=== PATIENT | female | born 1955 | race Caucasian/White ===

== ENCOUNTER 2016-06-14 14:55 | Outpatient (RCR) | payer BC ==
[2016-04-17 21:39] VITALS: BP 123/70
[~2016-06-14 14:55] MED LIST: NORCO 325 MG-51 TAB PO; ZOFRAN ODT4 MG PO
== END 2016-07-26 10:26 | disposition home or self-care (01) ==
LOC: PT 14:55
DX: M75.01 Adhesive capsulitis of right shoulder (principal)

== ENCOUNTER 2016-08-02 09:21 | Outpatient (RCR) | payer BC ==
[2016-04-17 21:39] VITALS: BP 123/70
== END 2016-10-31 | disposition home or self-care (01) ==
LOC: PT
DX: M75.22 Bicipital tendinitis, left shoulder (principal)

== ENCOUNTER 2016-12-22 16:30 | Outpatient (RCR) | payer BC ==
[2016-04-17 21:39] VITALS: BP 123/70
== END 2016-12-22 17:00 | disposition home or self-care (01) ==
LOC: PT 16:30
DX: M75.21 Bicipital tendinitis, right shoulder (principal)

== ENCOUNTER → 2017-02-01 | Outpatient (CLI) | payer BC ==
[2016-04-17 21:39] VITALS: BP 123/70
== END ==
LOC: LAB 15:03
DX: E03.4 Atrophy of thyroid (acquired) (principal); J98.4 Other disorders of lung; I49.9 Cardiac arrhythmia, unspecified

== ENCOUNTER → 2017-07-12 | Outpatient (CLI) | payer BC ==
[2016-04-17 21:39] VITALS: BP 123/70
== END ==
LOC: RAD 15:19
DX: M77.32 Calcaneal spur, left foot (principal)

== ENCOUNTER 2017-08-04 13:36 | Emergency (ER) | payer BC ==
[~2017-08-04] VITALS: Wt 79.7 kg
[2017-08-04] MEDS ORDERED: ASPIRIN E.C. 8181 MG PO (13:47)
[2017-08-04] MEDS ORDERED: PROPRANOLOL HCL20 M2 PO (13:47)
[2017-08-04] MEDS ORDERED: LEVOTHYROXINE0.05 MG PO (13:47)
[2017-08-04] MEDS ORDERED: VITAMIN E200 UNI1 (13:48)
[2017-08-04 14:30] LABS: EOS # 0.2 (0.04-0.40); EOS % 4.2 % (1.0-5.0); HEMATOCRIT 37.8 % (37.0-47.0); HEMOGLOBIN 12.4 g/dL (12.5-16.0); LYMPH# 1.5 (1.50-4.00); MEAN CELL VOLUME 92 fl (78-100); MEAN CORPUSCULAR HEMOGLOBIN 30 pg (27-31); MEAN CORPUSCULAR HGB CONC 33 g/dL (33-37); MEAN PLATELET VOLUME 9.4 fl (7.4-10.4); MONO # 0.3 (0.20-0.80); NEU # 2.7 (1.40-6.50); PLATELET COUNT 276 K/mm3 (130-400); RED CELL DISTRIBUTION WIDTH 12.6 % (11.5-14.5); WHITE BLOOD COUNT 4.8 K/mm3 (4.8-10.8)
[2017-08-04 14:39] LABS: BUN/CREATININE RATIO 27.2 (6.0-26.0); CALCIUM 9.2 mg/dL (8.4-10.2); POTASSIUM 4.1 mmol/L (3.6-5.0)
[2017-08-04 15:25] VITALS: BP 134/64
== END 2017-08-04 15:33 | disposition home or self-care (01) ==
LOC: ED 13:36
PROVIDERS: Family Medicine
DX: B34.9 Viral infection, unspecified (principal); I10 Essential (primary) hypertension; E03.9 Hypothyroidism, unspecified; Z79.82 Long term (current) use of aspirin

== ENCOUNTER → 2018-01-24 | Outpatient (CLI) | payer BC ==
[~2018-01-24] MED LIST changes: +ASPIRIN E.C. 8181 MG PO; +LEVOTHYROXINE0.05 MG PO; +PROPRANOLOL HCL20 M2 PO; +VITAMIN E200 UNI1
== END ==
LOC: RAD 10:49
DX: R10.9 Unspecified abdominal pain (principal)
CPT/HCPCS: Q9967

== ENCOUNTER → 2018-05-02 | Outpatient (CLI) | payer BC ==
[2018-05-02 20:44] LABS: URINE MUCUS PRESENT (NOT PRESENT)
[2018-05-02 21:35] LABS: CLUE CELLS NOT OBSERVED (Not Observd)
== END ==
LOC: LAB 16:37
PROVIDERS: Nurse Practitioner Family
DX: N39.0 Urinary tract infection, site not specified (principal); R30.0 Dysuria; N89.8 Other specified noninflammatory disorders of vagina
CPT/HCPCS: Q0111

== ENCOUNTER → 2019-02-26 | Outpatient (CLI) | payer BC ==
[~2019-02-26] VITALS: Ht 165.1 cm; Wt 72.7 kg
[2019-02-26 14:35] VITALS: BP 127/72
[2019-02-26 15:36] VITALS: BP 137/76
== END ==
LOC: AMSURD 14:10 → EDSTATUS 17:12
DX: R11.2 Nausea with vomiting, unspecified (principal); R19.7 Diarrhea, unspecified
CPT/HCPCS: J2405; J7030

== ENCOUNTER → 2019-05-05 | Outpatient (CLI) | payer BC ==
[2019-02-26 15:36] VITALS: BP 137/76
[2019-05-05 13:21] LABS: URINE APPEARANCE HAZY; URINE COLOR YELLOW
[2019-05-05 13:22] LABS: URINE BILIRUBIN NEGATIVE (NEGATIVE); URINE BLOOD TRACE (NEGATIVE); URINE GLUCOSE NEGATIVE (NEGATIVE); URINE KETONE NEGATIVE (NEGATIVE); URINE LEUKOCYTE ESTERASE TRACE (NEGATIVE); URINE NITRATE NEGATIVE (NEGATIVE); URINE PROTEIN(semi-quant) TRACE mg/dL (NEGATIVE); URINE UROBILINOGEN NORMAL (NORMAL)
[2019-05-05 13:23] LABS: URINE MUCUS PRESENT (NOT PRESENT)
== END ==
LOC: LAB 11:41 → RAD 11:41
PROVIDERS: Internal Medicine
DX: R10.32 Left lower quadrant pain (principal)

== ENCOUNTER → 2019-05-13 | Outpatient (CLI) | payer BC ==
[2019-02-26 15:36] VITALS: BP 137/76
== END ==
LOC: RAD 15:00
DX: M51.36 Other intervertebral disc degeneration, lumbar region (principal)

== ENCOUNTER → 2019-06-24 | Outpatient (CLI) | payer BC ==
[2019-02-26 15:36] VITALS: BP 137/76
[2019-06-24 14:14] LABS: EOS # 0.1 (0.04-0.40); EOS % 2.6 % (1.0-5.0); HEMATOCRIT 38.2 % (37.0-47.0); HEMOGLOBIN 12.7 g/dL (12.5-16.0); LYMPH# 1.8 (1.50-4.00); MEAN CELL VOLUME 93 fl (78-100); MEAN CORPUSCULAR HEMOGLOBIN 31 pg (27-31); MEAN CORPUSCULAR HGB CONC 33 g/dL (33-37); MEAN PLATELET VOLUME 9.2 fl (7.4-10.4); MONO # 0.3 (0.20-0.80); NEU # 2.5 (1.40-6.50); PLATELET COUNT 238 K/mm3 (130-400); RED BLOOD COUNT 4.12 M/mm3 (4.10-5.30); RED CELL DISTRIBUTION WIDTH 12.3 % (11.5-14.5); WHITE BLOOD COUNT 4.7 K/mm3 (4.8-10.8)
[2019-06-24 14:22] LABS: ALBUMIN 4.3 g/dL (3.4-4.8); POTASSIUM 3.9 mmol/L (3.5-5.1)
[2019-06-24 14:23] LABS: CALCIUM 8.2 mg/dL (8.3-10.5)
[2019-06-24 14:24] LABS: TOTAL PROTEIN 6.9 g/dL (6.2-8.1)
[2019-06-24 14:26] LABS: TOTAL BILIRUBIN 0.4 mg/dL (0.2-1.2)
[2019-06-24 15:14] LABS: ERYTHROCYTE SEDIMENTATION RATE 15 mm/hr (0-30)
== END ==
LOC: LAB 14:01
PROVIDERS: Internal Medicine
DX: Z00.00 Encounter for general adult medical examination without abnormal findings (principal); Z12.11 Encounter for screening for malignant neoplasm of colon; K90.89 Other intestinal malabsorption; E03.4 Atrophy of thyroid (acquired)

== ENCOUNTER → 2019-10-09 | Outpatient (CLI) | payer BC ==
[2019-02-26 15:36] VITALS: BP 137/76
== END ==
LOC: MAMMO 09:03
DX: Z00.00 Encounter for general adult medical examination without abnormal findings (principal); Z12.31 Encounter for screening mammogram for malignant neoplasm of breast; Z13.820 Encounter for screening for osteoporosis; M85.80 Other specified disorders of bone density and structure, unspecified site

== ENCOUNTER → 2019-10-24 | Outpatient (CLI) | payer BC ==
[2019-02-26 15:36] VITALS: BP 137/76
== END ==
LOC: RAD 14:39
DX: S92.514A Nondisplaced fracture of proximal phalanx of right lesser toe(s), initial encounter for closed fracture (principal)

== ENCOUNTER → 2020-07-28 | Outpatient (CLI) | payer BC ==
[2019-02-26 15:36] VITALS: BP 137/76
[2020-07-29 03:33] LABS: ALBUMIN 4.2 g/dL (3.4-4.8); ALT/SGPT 15 U/L (0-55); AST-SGOT 30 U/L (5-34); CALCIUM 9.5 mg/dL (8.3-10.5); CARBON DIOXIDE 27 mmol/L (23-31); GLUCOSE 98 mg/dL (65-105); POTASSIUM 4.7 mmol/L (3.5-5.1); SODIUM 141 mmol/L (136-145); TOTAL BILIRUBIN 0.3 mg/dL (0.2-1.2); TOTAL PROTEIN 7.1 g/dL (6.2-8.1); TROPONIN-I < 0.03 ng/mL (<0.030)
[2020-07-29 03:36] LABS: HEMATOCRIT 39.7 % (37.0-47.0); HEMOGLOBIN 12.7 g/dL (12.5-16.0); MEAN PLATELET VOLUME 9.4 fl (7.4-10.4); RED BLOOD COUNT 4.24 M/mm3 (4.10-5.30); RED CELL DISTRIBUTION WIDTH 12.3 % (11.5-14.5); WHITE BLOOD COUNT 4.6 K/mm3 (4.8-10.8)
[2020-07-29 03:44] LABS: D-DIMER 0.41 mg/L FEU (0.15-0.50)
== END ==
LOC: RAD 09:27
PROVIDERS: Nurse Practitioner
DX: R00.2 Palpitations (principal); K30 Functional dyspepsia; Z90.49 Acquired absence of other specified parts of digestive tract

== ENCOUNTER → 2020-08-19 | Day surgery (SDC) | payer BC ==
[2019-02-26 15:36] VITALS: BP 137/76
== END ==
LOC: MSO 07:02
DX: K21.9 Gastro-esophageal reflux disease without esophagitis (principal); K29.70 Gastritis, unspecified, without bleeding; Z79.899 Other long term (current) drug therapy; Z79.82 Long term (current) use of aspirin
CPT/HCPCS: 00731; J2704; J7120

== ENCOUNTER → 2020-10-19 | Outpatient (CLI) | payer BC ==
[2019-02-26 15:36] VITALS: BP 137/76
== END ==
LOC: MAMMO 09:42
DX: Z12.31 Encounter for screening mammogram for malignant neoplasm of breast (principal)

== ENCOUNTER → 2021-10-20 | Outpatient (CLI) | payer MEDICARE, BC | LOC: MAMMO 09:15 | DX: Z12.31 Encounter for screening mammogram for malignant neoplasm of breast (principal) ==

== ENCOUNTER → 2022-01-16 | Outpatient (CLI) | payer MEDICARE, BC ==
[2022-01-16 15:31] LABS: BASO # 0.04 K/mm3 (0.02-0.10); EOS # 0.18 K/mm3 (0.04-0.40); EOS % 3.2 % (1.0-5.0); HEMATOCRIT 38.2 % (37.0-47.0); HEMOGLOBIN 12.5 g/dL (12.5-16.0); LYMPH# 1.74 K/mm3 (1.50-4.00); MEAN CELL VOLUME 95 fl (78-100); MEAN CORPUSCULAR HEMOGLOBIN 31 pg (27-31); MEAN CORPUSCULAR HGB CONC 33 g/dL (33-37); MEAN PLATELET VOLUME 9.2 fl (7.4-10.4); MONO # 0.33 K/mm3 (0.20-0.80); NEU # 3.28 K/mm3 (1.40-6.50); PLATELET COUNT 209 K/mm3 (130-400); RED BLOOD COUNT 4.01 M/mm3 (4.10-5.30); WHITE BLOOD COUNT 5.6 K/mm3 (4.8-10.8)
[2022-01-16 16:25] LABS: POTASSIUM 4.1 mmol/L (3.5-5.1); SODIUM 142 mmol/L (136-145)
[2022-01-16 16:26] LABS: CALCIUM 9.3 mg/dL (8.3-10.5)
[2022-01-16 16:28] LABS: GLUCOSE 87 mg/dL (65-105); TOTAL PROTEIN 6.9 g/dL (6.2-8.1)
[2022-01-16 16:29] LABS: CARBON DIOXIDE 25 mmol/L (23-31)
[2022-01-16 16:30] LABS: TOTAL BILIRUBIN 0.3 mg/dL (0.2-1.2)
[2022-01-16 16:33] LABS: AST-SGOT 41 U/L (5-34)
[2022-01-16 16:35] LABS: ALT/SGPT 28 U/L (0-55)
[2022-01-16 17:15] LABS: ERYTHROCYTE SEDIMENTATION RATE 18 mm/hr (0-30)
== END ==
LOC: LAB 15:18
PROVIDERS: Internal Medicine
DX: Z00.00 Encounter for general adult medical examination without abnormal findings (principal); E03.4 Atrophy of thyroid (acquired); I49.3 Ventricular premature depolarization; G43.009 Migraine without aura, not intractable, without status migrainosus; K21.9 Gastro-esophageal reflux disease without esophagitis; M85.80 Other specified disorders of bone density and structure, unspecified site

== ENCOUNTER → 2022-05-03 | Outpatient (CLI) | payer MEDICARE, BC | LOC: RAD 10:03 | DX: M16.11 Unilateral primary osteoarthritis, right hip (principal); M17.11 Unilateral primary osteoarthritis, right knee ==

== ENCOUNTER → 2023-05-07 | Outpatient (CLI) | payer MEDICARE, BC ==
[2023-05-07 09:06] LABS: BASO # 0.03 K/mm3 (0.02-0.10); EOS % 2.3 % (1.0-5.0); HEMATOCRIT 39.2 % (37.0-47.0); HEMOGLOBIN 12.8 g/dL (12.5-16.0); MEAN CELL VOLUME 94 fl (78-100); MEAN CORPUSCULAR HEMOGLOBIN 31 pg (27-31); MEAN CORPUSCULAR HGB CONC 33 g/dL (33-37); MEAN PLATELET VOLUME 8.8 fl (7.4-10.4); NEU # 2.51 K/mm3 (1.40-6.50); PLATELET COUNT 228 K/mm3 (130-400); RED BLOOD COUNT 4.16 M/mm3 (4.10-5.30); RED CELL DISTRIBUTION WIDTH 11.9 % (11.5-14.5); WHITE BLOOD COUNT 4.4 K/mm3 (4.8-10.8)
[2023-05-07 09:18] LABS: ALBUMIN 3.8 g/dL (3.4-4.8)
[2023-05-07 09:19] LABS: CALCIUM 9.2 mg/dL (8.3-10.5)
[2023-05-07 09:21] LABS: TOTAL PROTEIN 6.7 g/dL (6.2-8.1)
[2023-05-07 09:23] LABS: TOTAL BILIRUBIN 0.4 mg/dL (0.2-1.2)
[2023-05-07 09:27] LABS: MAGNESIUM 1.94 mg/dL (1.60-2.60)
[2023-05-07 10:10] LABS: ERYTHROCYTE SEDIMENTATION RATE 30 mm/hr (0-30)
[2023-05-07 22:07] LABS: HEPATITIS C VIRUS ANTIBODY Negative (Negative)
== END ==
LOC: LAB 08:53
PROVIDERS: Internal Medicine
DX: Z12.11 Encounter for screening for malignant neoplasm of colon (principal); Z11.59 Encounter for screening for other viral diseases; Z11.4 Encounter for screening for human immunodeficiency virus [HIV]; E03.4 Atrophy of thyroid (acquired); M85.80 Other specified disorders of bone density and structure, unspecified site; I49.3 Ventricular premature depolarization; G43.009 Migraine without aura, not intractable, without status migrainosus; K21.9 Gastro-esophageal reflux disease without esophagitis; E78.2 Mixed hyperlipidemia

== ENCOUNTER → 2023-05-15 | Outpatient (CLI) | payer MEDICARE, BC | LOC: LAB 09:26 | DX: Z11.4 Encounter for screening for human immunodeficiency virus [HIV] (principal); Z11.59 Encounter for screening for other viral diseases; Z12.11 Encounter for screening for malignant neoplasm of colon; E03.4 Atrophy of thyroid (acquired); M85.80 Other specified disorders of bone density and structure, unspecified site; I49.3 Ventricular premature depolarization; G43.009 Migraine without aura, not intractable, without status migrainosus; K21.9 Gastro-esophageal reflux disease without esophagitis; E78.2 Mixed hyperlipidemia ==

== ENCOUNTER → 2023-08-22 | Outpatient (CLI) | payer MEDICARE, BC | LOC: LAB 13:12 | DX: R89.1 Abnormal level of hormones in specimens from other organs, systems and tissues (principal) ==

== ENCOUNTER → 2023-11-06 | Outpatient (CLI) | payer MEDICARE, BC | LOC: RAD 09:25 | DX: R92.8 Other abnormal and inconclusive findings on diagnostic imaging of breast (principal) ==

== ENCOUNTER → 2023-12-13 | Outpatient (CLI) | payer MEDICARE, BC | LOC: RAD 15:40 | DX: M16.11 Unilateral primary osteoarthritis, right hip (principal); H53.9 Unspecified visual disturbance ==

== ENCOUNTER → 2024-03-18 | Outpatient (CLI) | payer MEDICARE, BC ==
[~2024-03-18] MED LIST changes: +CLOPIDOGREL PO; +MACROBID 100 M100 MG PO
[2024-03-18 13:06] LABS: PH-URINE 5.5 (5.0 - 8.0); URINE APPEARANCE CLOUDY (CLEAR); URINE COLOR YELLOW (YELLOW); URINE PROTEIN(semi-quant) NEGATIVE (NEGATIVE)
[2024-03-18 13:07] LABS: URINE BILIRUBIN NEGATIVE (NEGATIVE); URINE BLOOD 1+ (NEGATIVE); URINE GLUCOSE NEGATIVE (NEGATIVE); URINE KETONE NEGATIVE (NEGATIVE); URINE LEUKOCYTE ESTERASE 1+ (NEGATIVE); URINE MUCUS PRESENT (NOT PRESENT); URINE NITRATE NEGATIVE (NEGATIVE)
== END ==
LOC: LAB 12:13
PROVIDERS: Internal Medicine
DX: N39.0 Urinary tract infection, site not specified (principal)

== ENCOUNTER 2024-03-22 17:02 | Emergency (ER) | payer MEDICARE, BC ==
[~2024-03-22] VITALS: Ht 167.6 cm; Wt 75.9 kg
[~2024-03-22 17:02] MED LIST changes: -CLOPIDOGREL PO; -MACROBID 100 M100 MG PO
[2024-03-22] MEDS ORDERED: CLOPIDOGREL PO (17:12)
[2024-03-22 17:37] LABS: BASO # 0.01 K/mm3 (0.02-0.10); EOS # 0.14 K/mm3 (0.04-0.40); EOS % 2.7 % (1.0-5.0); HEMATOCRIT 40.1 % (37.0-47.0); HEMOGLOBIN 13.1 g/dL (12.5-16.0); LYMPH# 1.92 K/mm3 (1.50-4.00); MEAN CELL VOLUME 94 fl (78-100); MEAN CORPUSCULAR HEMOGLOBIN 31 pg (27-31); MEAN CORPUSCULAR HGB CONC 33 g/dL (33-37); MEAN PLATELET VOLUME 9.3 fl (7.4-10.4); MONO # 0.34 K/mm3 (0.20-0.80); NEU # 2.77 K/mm3 (1.40-6.50); PLATELET COUNT 233 K/mm3 (130-400); RED BLOOD COUNT 4.26 M/mm3 (4.10-5.30); RED CELL DISTRIBUTION WIDTH 12.1 % (11.5-14.5); WHITE BLOOD COUNT 5.2 K/mm3 (4.8-10.8)
[2024-03-22 17:45] LABS: ALBUMIN 4.3 g/dL (3.4-4.8); SODIUM 141 mmol/L (136-145)
[2024-03-22 17:46] LABS: CALCIUM 9.4 mg/dL (8.3-10.5)
[2024-03-22 17:47] LABS: GLUCOSE 132 mg/dL (65-105)
[2024-03-22 17:48] LABS: TOTAL PROTEIN 6.9 g/dL (6.2-8.1)
[2024-03-22 17:49] LABS: CARBON DIOXIDE 19 mmol/L (23-31); TOTAL BILIRUBIN 0.4 mg/dL (0.2-1.2)
[2024-03-22 17:53] LABS: AST-SGOT 30 U/L (5-34)
[2024-03-22 17:54] LABS: ALT/SGPT 16 U/L (0-55)
[2024-03-22] MEDS ORDERED: traMADol 50 MG TAB PO ONE (18:00)
[2024-03-22 18:03] LABS: TROPONIN-I < 0.030 ng/mL (0.00-0.033)
[2024-03-22] MEDS ORDERED: MACROBID 100 M100 MG PO (19:06)
[2024-03-22 19:13] VITALS: BP 127/75
== END 2024-03-22 19:14 | disposition home or self-care (01) ==
LOC: ED 17:02
PROVIDERS: Nurse Practitioner Family
DX: N39.0 Urinary tract infection, site not specified (principal); R55 Syncope and collapse

== ENCOUNTER → 2024-03-28 | Outpatient (CLI) | payer MEDICARE, BC ==
[~2024-03-28] MED LIST changes: +CLOPIDOGREL PO; +MACROBID 100 M100 MG PO
[2024-03-28 12:38] LABS: PH-URINE 6.5 (5.0 - 8.0); URINE APPEARANCE SLIGHTLY CLOUDY (CLEAR); URINE BILIRUBIN NEGATIVE (NEGATIVE); URINE BLOOD NEGATIVE (NEGATIVE); URINE COLOR YELLOW (YELLOW); URINE GLUCOSE NEGATIVE (NEGATIVE); URINE KETONE NEGATIVE (NEGATIVE); URINE LEUKOCYTE ESTERASE TRACE (NEGATIVE); URINE NITRATE NEGATIVE (NEGATIVE); URINE PROTEIN(semi-quant) NEGATIVE (NEGATIVE)
[2024-03-28 12:43] LABS: URINE MUCUS PRESENT (NOT PRESENT)
== END ==
LOC: LAB 12:12
PROVIDERS: Internal Medicine
DX: N39.0 Urinary tract infection, site not specified (principal)

== ENCOUNTER → 2024-05-06 | Outpatient (CLI) | payer MEDICARE, BC | LOC: MAMMO 08:00 | DX: R92.8 Other abnormal and inconclusive findings on diagnostic imaging of breast (principal); N64.89 Other specified disorders of breast ==

== ENCOUNTER → 2024-05-21 | Outpatient (CLI) | payer MEDICARE, BC ==
[2024-05-21 16:32] LABS: BASO # 0.02 K/mm3 (0.02-0.10); EOS # 0.08 K/mm3 (0.04-0.40); EOS % 1.7 % (1.0-5.0); HEMATOCRIT 41.5 % (37.0-47.0); HEMOGLOBIN 13.8 g/dL (12.5-16.0); LYMPH# 1.35 K/mm3 (1.50-4.00); MEAN CELL VOLUME 92 fl (78-100); MEAN CORPUSCULAR HEMOGLOBIN 31 pg (27-31); MEAN CORPUSCULAR HGB CONC 33 g/dL (33-37); MONO # 0.26 K/mm3 (0.20-0.80); NEU # 2.99 K/mm3 (1.40-6.50); PLATELET COUNT 263 K/mm3 (130-400); RED CELL DISTRIBUTION WIDTH 11.8 % (11.5-14.5); WHITE BLOOD COUNT 4.7 K/mm3 (4.8-10.8)
[2024-05-21 16:40] LABS: ALBUMIN 4.2 g/dL (3.4-4.8)
[2024-05-21 16:42] LABS: TOTAL PROTEIN 7.2 g/dL (6.2-8.1)
[2024-05-21 16:44] LABS: TOTAL BILIRUBIN 0.3 mg/dL (0.2-1.2)
[2024-05-21 16:48] LABS: MAGNESIUM 2.08 mg/dL (1.60-2.60)
[2024-05-21 23:08] LABS: FOLATE (FOLIC ACID) 12.9 ng/mL (2.0-20.0)
== END ==
LOC: LAB 15:52
PROVIDERS: Internal Medicine
DX: M85.80 Other specified disorders of bone density and structure, unspecified site (principal); R20.2 Paresthesia of skin; R73.9 Hyperglycemia, unspecified; E03.4 Atrophy of thyroid (acquired); E78.2 Mixed hyperlipidemia

== ENCOUNTER → 2024-05-26 | Outpatient (CLI) | payer MEDICARE, BC | LOC: LAB 12:26 | DX: Z12.11 Encounter for screening for malignant neoplasm of colon (principal) ==

== ENCOUNTER → 2024-06-26 | Outpatient (CLI) | payer MEDICARE, BC ==
[2024-06-26 16:52] LABS: URINE APPEARANCE SLIGHTLY CLOUDY (CLEAR); URINE BILIRUBIN NEGATIVE (NEGATIVE); URINE COLOR YELLOW (YELLOW); URINE GLUCOSE NEGATIVE (NEGATIVE); URINE KETONE NEGATIVE (NEGATIVE); URINE NITRATE NEGATIVE (NEGATIVE); URINE PROTEIN(semi-quant) NEGATIVE (NEGATIVE)
[2024-06-26 16:53] LABS: URINE BLOOD TRACE (NEGATIVE); URINE LEUKOCYTE ESTERASE NEGATIVE (NEGATIVE); URINE WBC 0-1 /hpf (0-3)
[2024-06-26 16:55] LABS: URINE MUCUS PRESENT (NOT PRESENT)
== END ==
LOC: LAB 16:02
PROVIDERS: Internal Medicine
DX: N39.0 Urinary tract infection, site not specified (principal)